=== PATIENT | male | born 1970 ===

== ENCOUNTER 2016-10-07 09:48 | Emergency (ER) | payer SELFPAY ==
[2016-10-07 10:14] VITALS: BP 122/86
[2016-10-07] MEDS ORDERED: Ketorolac INJ* 60 MG/2 ML VIAL IM ONE (10:29)
--- NOTE | 2016-10-07 10:31 | UC ---
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 Pt's speaks Bruneian, but understand Irish. His Daughter who speaks Irish very well is translating. Pt states pain is 10/10 near the base of RT #2 toe. Associated with mild numbness over the #1 and #2 toes and swelling. Pt unable to wiggle those toes. Pt placed ice over his foot last night, but has not taking anything to alleviate pain. Pt denies fever, SOB, chest pain, abdominal pain, N/V/D. Pt has not other complains. - History of Current Complaint Chief Complaint: UCLowerExtremity Stated Complaint: LEG INJURY Time Seen by Provider: 10/07/16 10:15 Hx Obtained From: Patient, Family/Apiarist - daughter Onset/Duration: Sudden Onset, Lasting Days - 1 day, Still Present Severity Initially: Moderate Severity Currently: Moderate Pain Intensity: 10 Pain Scale Used: 0-10 Numeric Aggravating Factor(s): Ambulation Alleviating Factor(s): Rest, Ice Able to Bear Weight: Yes - Risk Factors Gout Risk Factors: Negative DVT Risk Factors: Negative Septic Arthritis Risk Factor: Negative - Allergies/Home Medications Allergies/Adverse Reactions: Allergies Allergy/AdvReac Type Severity Reaction Status Date / Time No Known Allergies Allergy Verified 10/07/16 10:14 Home Medications: Home Medications NK [No Home Medications Reported] 10/07/16 [History Confirmed 10/07/16] PMH/Surg Hx/FS Hx/Imm Hx Previously Healthy: Yes Respiratory History: Asthma - Surgical History Surgical History: Yes Surgery Procedure, Year, and Place: left eye surgery 4 yrs ago - Family History Known Family History: Positive: None Family History: Pt states no FMHX - Social History Occupation: Employed Full-time Lives: With Family Alcohol Use: Daily Substance Use Type: None Smoking Status (MU): Light Every Day Tobacco Smoker Type: Cigarettes Have You Smoked in the Last Year: Yes Household Exposure Type: Cigarettes Review of Systems Constitutional: Negative Skin: Negative Eyes: Negative ENT: Negative Respiratory: Negative Cardiovascular: Negative Gastrointestinal: Negative Genitourinary: Negative Motor: Negative Neurovascular: Negative Musculoskeletal: Other: - RT foot pain w/ swelling s/p fall Neurological: Negative Psychological: Negative All Other Systems Reviewed And Are Negative: Yes Physical Exam Triage Information Reviewed: Yes Appearance: Well-Appearing, No Pain Distress, Well-Nourished, Thin Vital Signs: Initial Vital Signs Temp 98.4 F 10/07/16 10:07 Pulse 79 10/07/16 10:07 Resp 16 10/07/16 10:07 BP 122/86 10/07/16 10:07 Pulse Ox 97 10/07/16 10:07 Vital Signs Reviewed: Yes Eye Exam: Normal Eyes: Positive: Conjunctiva Clear - PERRLA, EOMI ENT Exam: Normal ENT: Positive: Normal ENT inspection, Hearing grossly normal, Pharynx normal, TMs normal Dental Exam: Normal Neck exam: Normal Neck: Positive: Supple, Nontender, No Lymphadenopathy Respiratory Exam: Normal Respiratory: Positive: Chest non-tender, Lungs clear, Normal breath sounds Cardiovascular Exam: Normal Cardiovascular: Positive: RRR, No Murmur, Pulses Normal, Brisk Capillary Refill Abdominal Exam: Normal Abdomen Description: Positive: Nontender, No Organomegaly, Soft. Negative: CVA Tenderness (R), CVA Tenderness (L) Bowel Sounds: Positive: Present Musculoskeletal: Positive: Other: - RT foot tenderness at the level of the #2 and #3 Rt metartarsal , with moderate swelling, decrease ROM of all toes, sensation is intact, positive pulses, capillary refill brisk, FROM of RT ankle. 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 Pt's speaks Bruneian, but understand Irish. His Daughter who speaks Irish very well is translating. Pt states pain is 10/10 near the base of RT #2 toe. Associated mild numbness over the #1 and #2 toes and swelling. Pt unable to wiggle those toes. Pt placed ice over his foot last night, but has not taking anything to alleviate pain. Pt denies fever, SOB, chest pain, abdominal pain, N/V/D. HX obtained. Toradol IM inj ordered. Gicen by Nurse for pain. Pt tolerated well IM inj and pain decreae 5/10. Rt foot X-ray ordered. Radiologist interpreted X-ray, I reviewed X-ray. Impression: no acute osseous injury. Pt's RT foot immobilized with as lucero bandaged and given a postup shoe to avoid flexion of foot. Rx Ibuprofen PO to allevaite swelling and pain. Advised RICE. F/u with orthopedic or PCP if symptoms persists for further treatment. D?C instruction transalated by Daughter. Pt verbalized he understood and agreed w/ D/C plan. Pt left the clinic ambulating and neurovascular intact. - Differential Dx/Diagnosis Differential Diagnosis/HQI/PQRI: Arthritis, Contusion, Dislocation, Fracture ( Closed), Sprain, Strain, Tendonitis Provider Diagnoses: 1- Acute Right foot pain s/p fall Discharge - Discharge Plan Condition: Stable Disposition: HOME Patient Education Materials: Foot Sprain (ED) Forms: *Work Release Referrals: Becky Yates MD [Primary Care Provider] - 1 Week Joyce Arriola MD [Medical Doctor] - 1 Week Additional Instructions: 1-Please take medications as directed to alleviate pain and swelling. 2-Please apply ice, keep your foot immobilized with the splint. 3- Please f/u with Orthopedic or your PCP in 1 week is not improvement of symptoms for further evaluation and treatment.
--- NOTE | 2016-10-07 11:06 | RAD ---
HISTORY: Right foot pain status post fall COMPARISONS: None VIEWS: 3, Frontal, lateral, and oblique views of the right foot FINDINGS: BONE DENSITY: Normal. BONES: There is no displaced fracture. JOINTS: There is no arthropathy. ALIGNMENT: There is no dislocation. SOFT TISSUES: Unremarkable. OTHER FINDINGS: None. IMPRESSION: NO ACUTE OSSEOUS INJURY. IF SYMPTOMS PERSIST, RECOMMEND REPEAT IMAGING.
== END 2016-10-07 11:47 | disposition home or self-care (01) ==
LOC: UCEAST 09:48
DX: M79.671 Pain in right foot (principal); J45.909 Unspecified asthma, uncomplicated; F17.210 Nicotine dependence, cigarettes, uncomplicated
CPT/HCPCS: 96372; 99212; G0463; J1885

== ENCOUNTER → 2018-06-17 13:23 | Emergency (ER) | payer SELFPAY ==
--- NOTE | 2018-06-17 15:52 | ED ---
Lower Extremity - HPI Summary HPI Summary: Patient is a 47-year-old male, speaking through [employer] via [employer] presenting to the ED with right foot pain and swelling. He states he injured the foot last year, but no fracture. He states yesterday he developed erythema and swelling to the anterior portion of the foot. He has since been needing to walk on the lateral side of the foot as well as the heel for relief. He does remain ambulatory. He denies any fevers, sweats, chills. He denies any erythema streaking up the foot or leg. No history of cellulitis. No history of gout. Symptoms began suddenly yesterday afternoon and are severe in nature. Symptoms are not worse or better with ambulation or better with rest. - History of Current Complaint Chief Complaint: EDExtremityLower Stated Complaint: FOOT INJURY PER PT Time Seen by Provider: 06/17/18 13:34 Hx Obtained From: Patient Mechanism Of Injury: Unknown Onset of Pain: Hours Onset/Duration: Hours Severity Initially: Moderate Severity Currently: Moderate Pain Intensity: 6 Pain Scale Used: 0-10 Numeric Timing: Constant Location: Is Discrete @ - anterior R foot pain Character Of Pain: Aching Associated Signs And Symptoms: Positive: Swelling, Redness Aggravating Factor(s): Standing Alleviating Factor(s): Ice Able to Bear Weight: Yes - Risk Factors Gout Risk Factors: Age Over 40, Male DVT Risk Factors: Negative Septic Arthritis Risk Factor: Negative - Allergies/Home Medications Allergies/Adverse Reactions: Allergies Allergy/AdvReac Type Severity Reaction Status Date / Time No Known Allergies Allergy Verified 10/07/16 10:14 PMH/Surg Hx/FS Hx/Imm Hx Previously Healthy: Yes Endocrine/Hematology History: Denies: Hx Diabetes, Hx Thyroid Disease Cardiovascular History: Denies: Hx Hypertension Respiratory History: Reports: Hx Asthma Denies: Hx Chronic Obstructive Pulmonary Disease (COPD) GI History: Denies: Hx Ulcer - Surgical History Surgery Procedure, Year, and Place: left eye surgery 4 yrs ago - Immunization History Hx Pertussis Vaccination: No Immunizations Up to Date: Yes Infectious Disease History: No Infectious Disease History: Denies: Hx Clostridium Difficile, Hx Hepatitis, Hx Human Immunodeficiency Virus (HIV), Hx of Known/Suspected MRSA, Hx Shingles, Hx Tuberculosis, Hx Known/ Suspected VRE, Hx Known/Suspected VRSA, History Other Infectious Disease, Traveled Outside the [place] in Last 30 Days - Family History Known Family History: Positive: None Family History: Pt states no FMHX - Social History Occupation: Employed Full-time Lives: With Family Alcohol Use: Daily Hx Substance Use: No Substance Use Type: Reports: None Smoking Status (MU): Light Every Day Tobacco Smoker Type: Cigarettes Have You Smoked in the Last Year: Yes Review of Systems Constitutional: Negative Negative: Fever, Chills, Fatigue - initial, Skin Diaphoresis Negative: Palpitations, Chest Pain Negative: Shortness Of Breath, Cough Genitourinary: Negative Positive: no symptoms reported, see HPI Positive: Arthralgia - 1right anterior foot pain. Negative: Myalgia Positive: Other - erythema and slight swelling to the anterior dorsum of the foot without streaking or evidence of cellulitis otherwise Psychological: Normal All Other Systems Reviewed And Are Negative: Yes Physical Exam Triage Information Reviewed: Yes Vital Signs On Initial Exam: Initial Vitals Temp Pulse Resp BP Pulse Ox 98.7 F 70 20 149/88 97 06/17/18 13:26 06/17/18 13:26 06/17/18 13:26 06/17/18 13:26 06/17/18 13:26 Vital Signs Reviewed: Yes Appearance: Positive: Well-Appearing, Well-Nourished Skin: Positive: Skin Color Reflects Adequate Perfusion, Other - erythema - acute onset of pain with swelling Head/Face: Positive: Normal Head/Face Inspection Neck: Positive: Supple, No Lymphadenopathy Respiratory/Lung Sounds: Positive: Clear to Auscultation, Breath Sounds Present Cardiovascular: Positive: Pulses are Symmetrical in both Upper and Lower Extremities Musculoskeletal: Positive: Strength/ROM Intact Neurological: Positive: Speech Normal Psychiatric: Positive: Affect/Mood Appropriate Diagnostics - Vital Signs Vital Signs Temp Pulse Resp BP Pulse Ox 06/17/18 13:26 98.7 F 70 20 149/88 97 - Laboratory Lab Statement: Any lab studies that have been ordered have been reviewed, and results considered in the medical decision making process. Lower Extremity Course/Dx - Course Course Of Treatment: Evaluation of the right foot reveals slight swelling and erythema to the dorsum of the foot extending into the toes. Erythema is likely in this does not appear to be a cellulitis. Discussed with the patient this could be a inflammatory process of the tendons versus gout. Patient will be given prescription for indomethacin. X-ray obtained which shows swelling, but no other acute findings. - Diagnoses Differential Diagnosis/HQI/PQRI: Positive: Gout, Sprain, Strain, Tendonitis Provider Diagnoses: Foot pain, right Discharge - Sign-Out/Discharge Documenting (check all that apply): Patient Departure Patient Received Moderate/Deep Sedation with Procedure: No - Discharge Plan Condition: Stable Disposition: HOME Prescriptions: Indomethacin CAP* [Indocin CAP*] 50 mg PO TID PRN #12 cap PRN Reason: Pain Patient Education Materials: Gout (ED) Forms: *Work Release Referrals: Becky Yates MD [Primary Care Provider] - Additional Instructions: You may have gout to the right foot This also may be a inflammation of the tendons of the foot These both require medication, ice and elevation to heal Off work until Thursday Try to reduce how much you walk on the foot If symptoms worsen, return to the ED - Billing Disposition and Condition Condition: STABLE Disposition: Home
[2018-06-17 16:09] VITALS: BP 0/0
== END | disposition home or self-care (01) ==
LOC: ED 13:23
DX: M79.671 Pain in right foot (principal); J45.909 Unspecified asthma, uncomplicated; F17.210 Nicotine dependence, cigarettes, uncomplicated
CPT/HCPCS: 99282